=== PATIENT | female | born 1950 | race Caucasian/White ===

== ENCOUNTER 2017-11-04 16:57 | Observation (INO) ==
[2017-11-04] MEDS ORDERED: *HR* HYDROcodone/Acet 5/325 mg TABLET PO PRN (20:45)
[2017-11-04] MEDS ORDERED: Naloxone 0.4 MG/ML INJ IVP PRN (20:45)
[2017-11-04] MEDS ORDERED: Ondansetron 4 MG/2 ML VIAL IVP PRN (20:48)
--- NOTE | 2017-11-04 20:57 | Internal Med History&Physical ---
Date of Encounter: 11/04/17 Time of Encounter: 20:08 Internal Medicine - H&P: HPI Chief complaint: transfer from [place] [facility] for facial abscess Admitted From: Hospital to Hospital Transfer Plans for Post Hospital Care: Home History of present illness: Ms. Sepulveda is a 67 year old female with PMH of uterine ca s/p hysterectomy ( currently in remission-2years), and colon ca s/p colon resection 15 years ago who was transferred from [facility] for management of facial abscess. Pt reports of pulling a hair from her right upper lip region three days ago that appears to have gotten infected. She is noted to have significant swelling of her right upper lip extending to her lower jaw. Reports of severe pain and discomfort. Reports of having history of MRSA exposure. Prior to her transfer, she received Vancomycin and Clindamycin at the [facility]. ENT evaluation was requested by the ER physician prior to her transfer. At this time, pt is resting comfortably in bed, states pain is controlled, and denies any difficulty breathing, swallowing, headache, n/v, fever, or chills. Past Med Surg Social Fam HX - Past Medical History Medical history: cancer Psychiatric history: no psych history - Past Surgical History Surgical History: colectomy, hysterectomy - Social History Smoking Status: Never smoker Smokeless Tobacco Status: No Alcohol use: none Drug use: none Internal Medicine - H&P: Meds No Known Home Drugs 09/23/16 [History] 3 Allergy/AdvReac Type Severity Reaction Status Date / Time Tetanus Vaccines and Toxoid AdvReac Numbness Verified 09/23/16 09:25 [Tetanus Vaccines & Toxoid] All Systems PM: A 10-system review of systems was performed and is negative for pertinent findings except as documented above in the HPI. - Constitutional Constitutional: as per HPI, no chills, no fatigue, no fever(s), no falls, no lethargy, no malaise, no night sweats - Constitutional Vitals: Temp Pulse Resp BP Pulse Ox 97.9 F 80 14 114/54 99 11/04/17 19:57 11/04/17 19:57 11/04/17 19:57 11/04/17 19:57 11/04/17 19:57 General appearance: Present: A&O X 3, no acute distress, obese, answers questions appropriately - Head Head exam: Present: atraumatic, normocephalic - Expanded Head Exam 1 - area of infected hair with erythema and swelling, tender to touch, no tongue swelling - Respiratory Respiratory exam: Present: CTAB. Absent: accessory muscle use, rales, rhonchi, wheezes - Cardiovascular Cardiovascular exam: Present: RRR, +S1, +S2. Absent: diastolic murmur, gallop, rubs, systolic murmur - GI/Abdominal GI/Abdominal exam: Present: normal bowel sounds, soft, no peritoneal signs. Absent: distended, tenderness - Extremities Exam Extremities exam: Present: warm, radial pulses palpable and symmetrical. Absent : calf tenderness, cyanotic, pedal edema - Assessment and plan (1) Cellulitis Current Visit: No Status: Acute Assessment and plan: FACE CT: 1. Soft tissue swelling overlying the right side of the mandible with several loculated fluid collections adjacent to each other in the soft tissues lateral to the right side of the mandible. The largest measures 19 mm in diameter. These could represent infected fluid collections. 2. Otherwise, no acute abnormalities are seen in the face. Please follow up with ENT consultation in am continue broad spectrum IV abx IV fluids anti emetics as needed pain control supportive care Qualifiers: Site of cellulitis: face Qualified Code(s): L03.211 - Cellulitis of face (2) Obesity Current Visit: Yes Status: Chronic Qualifiers: Obesity type: unspecified obesity type Obesity classification: adult class 1 (BMI 30 - 34.9) Serious obesity comorbidity presence: without serious comorbidity Body mass index: BMI 31.0-31.9 Qualified Code(s): E66.9 - Obesity, unspecified; Z68.31 - Body mass index (BMI) 31.0-31.9, adult (3) DVT prophylaxis Current Visit: Yes Status: Acute Assessment and plan: Heparin SQ - Time Spent With Patient Total time spent is greater than 50% in coordination of care (as documented) at patient's floor/unit and/or counseling patient:
[2017-11-04] MEDS: *HR* OxyCODONE Immed Rel 5 MG TABLET PO PRN (21:01)
[2017-11-04] MEDS: 0.9 % Sodium Chloride 1,000 ML IVC SCH (21:02)
[2017-11-04] MEDS: Piperacillin/Tazobactam 3.375 GM in 0.9 % Sodium Chloride Mini Bag 100 ML IVPB SCH (23:42)
[2017-11-05] MEDS: *HR* OxyCODONE Immed Rel 5 MG TABLET PO PRN ×3 (03:48→18:01)
[2017-11-05 05:35] LABS: Basophils # 0.1 K/mcL (0.0-0.2); Basophils % 0.4 %; Eosinophils # 0.1 K/mcL (0.0-0.6); Eosinophils % 0.7 %; Hematocrit 35.8 % (35.3-44.9); Hemoglobin 11.9 g/dL (11.5-15.4); Immature Granulocytes % 0.4 % (0-4); Lymphocytes # 1.6 K/mcL (0.6-4.6); Lymphocytes % 10.1 %; Mean Corpuscular HGB Conc 33.2 g/dL (31.6-35.5); Mean Corpuscular Hemoglobin 31.6 pg (28.0-33.3); Mean Corpuscular Volume 95.2 fL (83.0-100.0); Mean Platelet Volume 10.6 fL (9.4-12.4); Monocytes # 0.9 K/mcL (0.0-1.3); Monocytes % 5.5 %; Neutrophils # 13.3 K/mcL (1.6-8.9); Platelet Count 265 K/mcL (140-400); Red Blood Count 3.76 M/mcL (3.82-4.97); Red Cell Distribution Width 13.4 % (11.5-14.5); Segmented Neutrophils % 82.9 %
[2017-11-05 05:55] LABS: BUN/Creatinine Ratio 9 (6-26); Blood Urea Nitrogen 9 mg/dL (8-23); Calcium 8.7 mg/dL (8.6-10.3); Carbon Dioxide 21 mEq/L (23-29); Chloride 107 mEq/L (98-107); Glucose 97 mg/dL (70-105); Osmolality,Calculated 283 (280-300); Phosphorous 3.5 mg/dL (2.7-4.5); Potassium 3.9 mEq/L (3.5-5.1); Sodium 137 mEq/L (136-145); eGFR For African Americans > 60 (> 60); eGFR For Non-African Americans 55 (> 60)
[2017-11-05] MEDS: Piperacillin/Tazobactam 3.375 GM in 0.9 % Sodium Chloride Mini Bag 100 ML IVPB SCH ×2 (08:03→18:00)
[2017-11-05] MEDS ORDERED: Lidocaine -MPF 1% 5 ML AMPUL INFILT ONE (08:58)
--- NOTE | 2017-11-05 09:10 | ENT - Consult Note ---
Date of Encounter: 11/05/17 Time of Encounter: 09:06 Assessment and Plan (1) Facial abscess Current Visit: Yes Status: Acute The area of the suspected abscess was aspirated at the bedside under local anesthetic. only a small amount of fluid could be aspirated despite probing in the areas identified on the CT. this was sent for culture. This should provide for culture directed therapy. if she worsens or does not improve, formal I&D may be necessary however I would prefer to see if IV abx can control this if possible to avoid an incision on the face. And given her level of pain/ tenderness, it may require general anesthesia. I will continue to follow. History of Present Illness Consult date: 11/05/17 Reason for ENT Consult: other (facial abscess, right side) History of present illness: Mrs Sepulveda is a 67 year old female with a several day history of facial swelling after pulling out a hair on the lateral part of her right upper lip. pain and swelling progressed until she presented yesterday to the ER at [place]. CT was obtained showing likely fluid collection that appears to be localized to the buccal space on the right. she was started on clindamycin and vancomycin before transfer here to the hospitalist service last night. she is currently on vancomycin and zosyn. she is afebrile. WBC 16 this morning (unclear if she may have received steroids prior to transfer?). Past Med Surg Social Fam HX - Past Medical History Medical history: cancer Psychiatric history: no psych history - Past Surgical History Surgical History: colectomy, hysterectomy - Social History Smoking Status: Never smoker Smokeless Tobacco Status: No Alcohol use: none Drug use: none Medications and Allergies No Known Home Drugs 09/23/16 [History] 3 Allergy/AdvReac Type Severity Reaction Status Date / Time Tetanus Vaccines and Toxoid AdvReac Numbness Verified 09/23/16 09:25 [Tetanus Vaccines & Toxoid] ENT - ROS - Constitutional Constitutional ROS: no fever(s) - EENT Nose, mouth and throat: as per HPI ENT Exam Initial Vital Signs Temp Pulse Resp BP Pulse Ox 97.1 F L 79 16 122/74 98 11/04/17 19:05 11/04/17 19:05 11/04/17 19:05 11/04/17 19:05 11/04/17 19:05 - General physical appearance well developed, well nourished, no distress, moderate pain - Eyes PERRL, normal ocular movement - ENT normal nares, normal mucosa, no congestion, atraumatic, normocephalic, CN 2-12 grossly intact, Other (edema and erythema of right face near commissure encompassing the area of the nasolabial fold superiorly extending inferiorly over the mandible. tense to palpation in buccal space over maxillary teeth.). negative: poor senior care - Neck no bruits, trachea midline - Respiratory normal expansion, normal respiratory effort Exam Initial Vital Signs Temp Pulse Resp BP Pulse Ox 97.1 F L 79 16 122/74 98 11/04/17 19:05 11/04/17 19:05 11/04/17 19:05 11/04/17 19:05 11/04/17 19:05 Results - Labs 11/05/17 05:14 11/05/17 05:14 Abnormal lab results WBC 16.1 K/mcL (4.3-11.1) H 11/05/17 05:14 RBC 3.76 M/mcL (3.82-4.97) L 11/05/17 05:14 Neutrophils # 13.3 K/mcL (1.6-8.9) H 11/05/17 05:14 Carbon Dioxide 21 mEq/L (23-29) L 11/05/17 05:14 Est GFR (Non-Af Amer) 55 (> 60) L 11/05/17 05:14 Diabetes panel 11/05/17 Range/Units 05:14 Sodium 137 (136-145) mEq/L Potassium 3.9 (3.5-5.1) mEq/L Chloride 107 (98-107) mEq/L Carbon Dioxide 21 L (23-29) mEq/L BUN 9 (8-23) mg/dL Creatinine 1.00 (0.60-1.20) mg/dL Glucose 97 (70-105) mg/dL Calcium 8.7 (8.6-10.3) mg/dL Calcium panel 11/05/17 Range/Units 05:14 Calcium 8.7 (8.6-10.3) mg/dL Phosphorus 3.5 (2.7-4.5) mg/dL Pituitary panel 11/05/17 Range/Units 05:14 Sodium 137 (136-145) mEq/L Potassium 3.9 (3.5-5.1) mEq/L Chloride 107 (98-107) mEq/L Carbon Dioxide 21 L (23-29) mEq/L BUN 9 (8-23) mg/dL Creatinine 1.00 (0.60-1.20) mg/dL Glucose 97 (70-105) mg/dL Calcium 8.7 (8.6-10.3) mg/dL Adrenal panel 11/05/17 Range/Units 05:14 Sodium 137 (136-145) mEq/L Potassium 3.9 (3.5-5.1) mEq/L Chloride 107 (98-107) mEq/L Carbon Dioxide 21 L (23-29) mEq/L BUN 9 (8-23) mg/dL Creatinine 1.00 (0.60-1.20) mg/dL Glucose 97 (70-105) mg/dL Calcium 8.7 (8.6-10.3) mg/dL All other labs normal. Consult Discharge Plan - Plan Referrals: Jos Ramirez [Partnered Physician] - Regino Tomas MD [Primary Care Provider] -
--- NOTE | 2017-11-05 09:50 | ENT - Procedure Note ---
Date of procedure: 11/05/17 Pre-op diagnosis: facial abscess Post-op diagnosis: same Procedure: aspiration of facial abscess, right nasolabial area extending down to buccal region informed consent was obtained. the area was infiltrated with 1% lidocaine, roughly 1 ml. a syringe and 19 jayla needle was used to probe the area. roughly 2 cc of purulent material was obtained which was applied to a culture swab and sent for culture. she tolerated the procedure well and there were no complications. Anesthesia: local Surgeon: Jos Ramirez Was there an assistant community manager present: No Estimated blood loss (cc): 1 Specimens collected: right facial abscess x2 Condition: stable
--- NOTE | 2017-11-05 14:12 | Internal Med Progress Note ---
Date of Encounter: 11/05/17 Time of Encounter: 14:10 - Assessment and plan (1) Facial abscess Current Visit: Yes Status: Acute Assessment and plan: Facial abscess status post aspiration. Continue current antibiotics while we await culture results. ENT following. If symptoms worsen, she may need I&D. Pain control. Moderate risk for complications. (2) Cellulitis Current Visit: Yes Status: Acute Assessment and plan: Management as above Qualifiers: Site of cellulitis: face Qualified Code(s): L03.211 - Cellulitis of face (3) Obesity Current Visit: Yes Status: Chronic Qualifiers: Obesity type: unspecified obesity type Obesity classification: adult class 1 (BMI 30 - 34.9) Serious obesity comorbidity presence: without serious comorbidity Body mass index: BMI 31.0-31.9 Qualified Code(s): E66.9 - Obesity, unspecified; Z68.31 - Body mass index (BMI) 31.0-31.9, adult (4) DVT prophylaxis Current Visit: Yes Status: Acute Assessment and plan: Will place patient on subcutaneous heparin - Time Spent With Patient Total time spent is greater than 50% in coordination of care (as documented) at patient's floor/unit and/or counseling patient: - Subjective Interval history: Patient seen earlier today. Complains of pain over her right upper lip as she just underwent aspiration. No fever or chills reported overnight. Continues to have swelling over her right maxillary and mandibular region and her right upper lip - Constitutional Vitals: Temp Pulse Resp BP Pulse Ox 98.8 F 77 16 113/70 98 11/05/17 10:45 11/05/17 10:45 11/05/17 10:45 11/05/17 10:45 11/05/17 10:45 General appearance: Present: A&O X 3, no acute distress, obese, answers questions appropriately - ENT Additional comments: Swelling involving the right maxillary and mandibular region and right upper lip. Erythema present over the right upper lip. Tender to palpation. - Neck Neck exam general surgery: Present: supple, trachea midline. Absent: lymphadenopathy - Respiratory Respiratory exam: Present: CTAB. Absent: accessory muscle use, rales, rhonchi, wheezes - Cardiovascular Cardiovascular exam: Present: RRR, +S1, +S2. Absent: diastolic murmur, gallop, rubs, systolic murmur - GI/Abdominal GI/Abdominal exam: Present: normal bowel sounds, soft, no peritoneal signs. Absent: distended, tenderness - Extremities Exam Extremities exam: Present: warm, radial pulses palpable and symmetrical. Absent : calf tenderness, cyanotic, pedal edema - Neurological Exam Neurological exam: Present: alert, CN II-XII intact, oriented X3, no focal deficits. Absent: facial droop, speech deficit - Skin Skin exam: Present: dry, intact Internal Medicine: Result - Labs CBC & Chem 7: 11/05/17 05:14 11/05/17 05:14 Labs: Short CBC 11/05/17 Range/Units 05:14 WBC 16.1 H (4.3-11.1) K/mcL Hgb 11.9 D (11.5-15.4) g/dL Hct 35.8 (35.3-44.9) % Plt Count 265 (140-400) K/mcL Neutrophils # 13.3 H (1.6-8.9) K/mcL BMP 11/05/17 05:14 Sodium 137 Potassium 3.9 Chloride 107 Carbon Dioxide 21 L BUN 9 Creatinine 1.00 Glucose 97 Calcium 8.7 Consult Discharge Plan - Plan Referrals: Jos Ramirez [Partnered Physician] - Regino Tomas MD [Primary Care Provider] -
[2017-11-05] MEDS: 0.9 % Sodium Chloride 1,000 ML IVC SCH (15:42)
[2017-11-05] MEDS: *HR* Heparin 5,000 UNIT/ML VIAL SQ SCH (18:01)
[2017-11-06] MEDS: Piperacillin/Tazobactam 3.375 GM in 0.9 % Sodium Chloride Mini Bag 100 ML IVPB SCH ×3 (02:43→18:23)
[2017-11-06] MEDS: *HR* OxyCODONE Immed Rel 5 MG TABLET PO PRN (02:48)
[2017-11-06 03:37] LABS: Basophils # 0.1 K/mcL (0.0-0.2); Basophils % 0.5 %; Eosinophils # 0.1 K/mcL (0.0-0.6); Eosinophils % 0.9 %; Hematocrit 34.2 % (35.3-44.9); Hemoglobin 11.1 g/dL (11.5-15.4); Immature Granulocytes % 0.4 % (0-4); Lymphocytes # 1.6 K/mcL (0.6-4.6); Lymphocytes % 12.6 %; Mean Corpuscular HGB Conc 32.5 g/dL (31.6-35.5); Mean Corpuscular Volume 95.5 fL (83.0-100.0); Mean Platelet Volume 10.5 fL (9.4-12.4); Monocytes # 0.8 K/mcL (0.0-1.3); Monocytes % 5.9 %; Neutrophils # 10.4 K/mcL (1.6-8.9); Platelet Count 262 K/mcL (140-400); Red Blood Count 3.58 M/mcL (3.82-4.97); Red Cell Distribution Width 13.2 % (11.5-14.5); Segmented Neutrophils % 79.7 %
[2017-11-06 04:01] LABS: BUN/Creatinine Ratio 8 (6-26); Blood Urea Nitrogen 8 mg/dL (8-23); Calcium 8.3 mg/dL (8.6-10.3); Carbon Dioxide 24 mEq/L (23-29); Chloride 107 mEq/L (98-107); Glucose 118 mg/dL (70-105); Osmolality,Calculated 281 (280-300); Potassium 3.9 mEq/L (3.5-5.1); Sodium 136 mEq/L (136-145); eGFR For African Americans > 60 (> 60); eGFR For Non-African Americans 55 (> 60)
[2017-11-06] MEDS: *HR* Heparin 5,000 UNIT/ML VIAL SQ SCH ×2 (05:22→16:46)
--- NOTE | 2017-11-06 07:34 | ENT - Progress Note ---
Date of Encounter: 11/06/17 Time of Encounter: 07:31 - Assessment and Plan (1) Facial abscess Current Visit: Yes Status: Acute The area of the suspected abscess was aspirated at the bedside under local anesthetic yesterday. culture still pending. this likely did not evacuate the entire abscess because only a couple of cc's were obtained. she remains afebrile today, WBC trening down, however she has not changed clinically and desires anything to be done that would speed her recovery. I offered I&D. she does not want to try this procedure without general anesthesia due to her pain level. She has been NPO since midnight. Will add her on the OR for this morning. consent obtained. Subjective Narrative: Mrs Sepulveda is a 67 year old female with a several day history of facial swelling after pulling out a hair on the lateral part of her right upper lip. pain and swelling progressed until she presented 2 days ago to the ER at [place]. CT was obtained showing likely fluid collection that appears to be localized to the buccal space on the right. she was started on clindamycin and vancomycin before transfer here to the hospitalist service. she has been on Zosyn and Vancomycin since her arrival here two nights ago. she remains afebrile. WBC 13 (down from 16) this morning. there has been no change in her condition clinically and she wants anything done that can get her better faster. Objective Initial Vital Signs Temp Pulse Resp BP Pulse Ox 97.1 F L 79 16 122/74 98 11/04/17 19:05 11/04/17 19:05 11/04/17 19:05 11/04/17 19:05 11/04/17 19:05 - General physical appearance well developed, well nourished, no distress - Eyes PERRL, normal ocular movement - ENT normal nares, normal mucosa, no congestion, Other (stable swelling of right nasolabial fold and buccal space over upper dentition.) - Neck no masses, no bruits, trachea midline - Labs 11/06/17 03:08 11/06/17 03:08 Diabetes panel 11/06/17 Range/Units 03:08 Sodium 136 (136-145) mEq/L Potassium 3.9 (3.5-5.1) mEq/L Chloride 107 (98-107) mEq/L Carbon Dioxide 24 (23-29) mEq/L BUN 8 (8-23) mg/dL Creatinine 1.00 (0.60-1.20) mg/dL Glucose 118 H (70-105) mg/dL Calcium 8.3 L (8.6-10.3) mg/dL Calcium panel 11/06/17 Range/Units 03:08 Calcium 8.3 L (8.6-10.3) mg/dL Pituitary panel 11/06/17 Range/Units 03:08 Sodium 136 (136-145) mEq/L Potassium 3.9 (3.5-5.1) mEq/L Chloride 107 (98-107) mEq/L Carbon Dioxide 24 (23-29) mEq/L BUN 8 (8-23) mg/dL Creatinine 1.00 (0.60-1.20) mg/dL Glucose 118 H (70-105) mg/dL Calcium 8.3 L (8.6-10.3) mg/dL Adrenal panel 11/06/17 Range/Units 03:08 Sodium 136 (136-145) mEq/L Potassium 3.9 (3.5-5.1) mEq/L Chloride 107 (98-107) mEq/L Carbon Dioxide 24 (23-29) mEq/L BUN 8 (8-23) mg/dL Creatinine 1.00 (0.60-1.20) mg/dL Glucose 118 H (70-105) mg/dL Calcium 8.3 L (8.6-10.3) mg/dL Consult Discharge Plan - Plan Referrals: Jos Ramirez [Partnered Physician] - Regino Tomas MD [Primary Care Provider] -
--- NOTE | 2017-11-06 08:07 | Anesthesia Evaluation PreOp ---
Date of Encounter: 11/06/17 Time of Encounter: 08:00 - Past History Planned Operation: Incision and Drainage Facial Abscess Cardiac History: Denies any Significant Hx Pulmonary History: Denies Any Significant HX GEODETIC SURVEY DIRECTOR History: Denies Any Significant HX Other Medical History: Denies Any Significant HX, Other (Hx Unterine and Colon Cancer) Anesthesia History: No Prior Anesthetic Complications, Past Anesthesia (Colon Resection, Hysterectomy) : No (AHMET) Alcohol Use: none Drug use: none Medications and Allergies No Known Home Drugs 09/23/16 [History] 3 Allergy/AdvReac Type Severity Reaction Status Date / Time Tetanus Vaccines and Toxoid AdvReac Numbness Verified 11/05/17 12:08 [Tetanus Vaccines & Toxoid] - Meds/Allergy Pre-op Review Medications Reviewed: Yes Allergies Reviewed: Yes Beta Blockers on Current Med List: No Anesthesia Results - Labs 11/06/17 03:08 11/06/17 03:08 Laboratory Tests 11/06/17 11/06/17 03:08 03:08 WBC 13.0 H Hgb 11.1 L Hct 34.2 L Plt Count 262 Sodium 136 Potassium 3.9 BUN 8 Creatinine 1.00 Anesthesia Exam Vital Signs/O2 Sat/Glucose, Most Current Temp Pulse Resp BP Pulse Ox 11/06/17 08:02 98.5 F 74 14 114/63 96 11/06/17 07:45 93 11/06/17 05:26 98.3 F 75 16 108/66 93 Height: 5'2 Weight: 175 lbs NPO (# of Hours): MN Pain Scale: 3 - HEENT Pupil (Motor): Pupils equal, EOMI Mallampati: III Teeth: Normal Oral Opening: Less than or equal to 3 (Swollen Rt Facial side) - GEODETIC SURVEY DIRECTOR LOC: Oriented GEODETIC SURVEY DIRECTOR Motor: Normal RUE, Normal LUE, Normal RLE, Normal LLE, Normal Face GEODETIC SURVEY DIRECTOR Sensory: Normal: RUE, LUE, RLE, LLE, Face - Cardiac Rhythm: Regular Murmur: None JVD: No Carotid Bruit: No - Pulmonary Breath Sounds: bilateral Clear Respiratory Effort: Symmetrical Anesthesia Assess/Plan ASA Score: 2 Modified Holmen Scale for Level of Consciousness: Cooperative, oriented, and tranquil Anesthetic Plan: General Monitoring Plan: Standard Monitors Recovery Plan: PACU (Discussed GA, agrees to proceed)
[2017-11-06] MEDS ORDERED: *HR* Succinylcholine 200 MG/10 ML VIAL IVP ONE (08:09)
[2017-11-06] MEDS ORDERED: Dexamethasone 4 MG/ML VIAL ONE ×2 (08:09→09:25)
[2017-11-06] MEDS ORDERED: Lidocaine -MPF 4% 5 ML AMPUL ONE (08:09)
[2017-11-06] MEDS ORDERED: Ondansetron 4 MG/2 ML VIAL ONE (08:09)
[2017-11-06] MEDS ORDERED: Lidocaine -MPF 2% 2 ML VIAL ONE ×2 (08:09)
[2017-11-06] MEDS ORDERED: *HR* Rocuronium Bromide 50 MG/5 ML VIAL ONE (08:09)
[2017-11-06] MEDS ORDERED: *HR* Propofol 200 MG/20 ML VIAL IVP ONE (08:11)
[2017-11-06] MEDS ORDERED: *HR* FentaNYL (PF) 100 MCG/2 ML VIAL ONE (08:11)
[2017-11-06] MEDS ORDERED: *HR* Midazolam HCl 2 MG/2 ML VIAL ONE (08:11)
[2017-11-06] MEDS ORDERED: Lidocaine/EPI 1:100k 1% 20 ML VIAL ONE (08:43)
[2017-11-06] MEDS ORDERED: Acetaminophen IV 1,000 MG/100 ML INFUS..BTL ONE (08:56)
[2017-11-06] MEDS ORDERED: Famotidine 20 MG/2 ML VIAL ONE (08:56)
[2017-11-06] MEDS ORDERED: EPHEDrine 50 MG/ML VIAL ONE (09:14)
[2017-11-06] MEDS ORDERED: Ketorolac 30 MG/ML VIAL ONE (09:22)
[2017-11-06] MEDS ORDERED: *HR* OxyCODONE Immed Rel 5 MG TABLET PO PRN (09:27)
[2017-11-06] MEDS ORDERED: MORPHINE SUL Oral CONC 10 MG/0.5 ML ORAL.SYG SL PRN (09:27)
[2017-11-06] MEDS ORDERED: *HR* Promethazine 25 MG/ML VIAL IVP PRN (09:27)
--- NOTE | 2017-11-06 09:39 | Operative Note ---
Date of procedure: 11/06/17 Pre-op diagnosis: right facial abscess Post-op diagnosis: same Procedure: intraoral incision and driange of right buccal space abscess Implants: mu drain in right buccal mucosa, sutured in place Complications: none Anesthesia: GETA Local Anesthetics: 1% Lidocaine HCL with Epinephrine 1:200,000 SubQ (cc) Surgeon: Jos Ramirez Was there an customer service assistant present: No Estimated blood loss (cc): 2 IV fluids (cc): 300 Specimen: wound culture x2 Condition: stable Disposition: PACU Procedure in Detail: Informed consent was verified in the preoperative holding area. The patient was taken to the main operating room and placed in a supine position the operating table. Gen. anesthesia was then initiated and she was endotracheally intubated without difficulty. A timeout was performed verifying the patient's name and the planned procedure. The patient was then prepped and draped for oral surgery. The buccal mucosa was infiltrated with 1% lidocaine with 1 100, 000 epinephrine in an area of fluctuance in preparation for incision and drainage. A 15 blade was used to incise the buccal mucosa overlying this fluctuant area. Copious purulent material was expressed and cultured. The cavity was then probed with a hemostat and additional loculations were opened. The abscess cavity extended posteriorly from the oral commissure roughly 4 cm. The cavity was irrigated with normal saline. Additional local anesthetic was injected in the surrounding areas for postoperative pain control. A Um drain was then placed in the incision into the abscess cavity and sutured in place with a 2-0 Prolene anteriorly on the buccal mucosa. At this point the goals of procedure had been met the patient was allowed to awaken from general anesthesia and was extubated without difficulty. She was taken to the recovery room in good condition. There were no complications.
--- NOTE | 2017-11-06 10:18 | Anesthesia Evaluation Post Op ---
Date of Encounter: 11/06/17 Time of Encounter: 10:20 - Vital Signs Vital Signs: Vital Signs/O2 Sat/Glucose, Most Current Temp Pulse Resp BP Pulse Ox 11/06/17 10:12 98.2 F 92 14 117/60 94 11/06/17 10:02 88 14 115/60 96 11/06/17 09:52 96 16 106/55 97 11/06/17 09:42 97.2 F L 98 16 106/55 98 11/06/17 08:02 98.5 F 74 14 114/63 96 11/06/17 07:45 93 - Lungs Lungs: Clear Ascult./Percussion - Airway Airway: Non-obstructed - Cardiovascular Regular Rate - Mental Status Mental Status: Alert & Oriented, Answers Appropriately - Pain Pain Scale: 1 - Nausea Vomiting Nausea Vomiting: Not Present - Hydration Hydration: Ice chips - Discharge PostOp Status: Transfer Patient to floor
--- NOTE | 2017-11-06 14:38 | Internal Med Progress Note ---
Date of Encounter: 11/06/17 Time of Encounter: 11:00 - Assessment and plan (1) Facial abscess Current Visit: Yes Status: Acute Assessment and plan: Wound culture growing gram-positive cocci. Possibly MRSA. Continue vancomycin. No other organism grows, we will stop Zosyn tomorrow. Moderate risk for complications (2) Cellulitis Current Visit: Yes Status: Acute Assessment and plan: Management as above Qualifiers: Site of cellulitis: face Qualified Code(s): L03.211 - Cellulitis of face (3) Obesity Current Visit: Yes Status: Chronic Qualifiers: Obesity type: unspecified obesity type Obesity classification: adult class 1 (BMI 30 - 34.9) Serious obesity comorbidity presence: without serious comorbidity Body mass index: BMI 31.0-31.9 Qualified Code(s): E66.9 - Obesity, unspecified; Z68.31 - Body mass index (BMI) 31.0-31.9, adult (4) DVT prophylaxis Current Visit: Yes Status: Acute Assessment and plan: With subcutaneous heparin - Time Spent With Patient Total time spent is greater than 50% in coordination of care (as documented) at patient's floor/unit and/or counseling patient: - Subjective Interval history: Patient underwent incision and drainage of buccal abscess this morning. Doing well post procedure. Complains of pain but is much improved since the surgery. No fever or chills reported overnight. No nausea or vomiting. - Constitutional Vitals: Temp Pulse Resp BP Pulse Ox 98.2 F 92 14 117/60 94 11/06/17 10:12 11/06/17 10:12 11/06/17 10:12 11/06/17 10:12 11/06/17 10:12 General appearance: Present: A&O X 3, no acute distress, obese, answers questions appropriately - ENT Additional comments: Swelling improved on the right side of the face. Less tender to palpation. Less indurated. Right upper lip swelling also improving. - Neck Neck exam general surgery: Present: supple, trachea midline. Absent: lymphadenopathy - Respiratory Respiratory exam: Present: CTAB. Absent: accessory muscle use, rales, rhonchi, wheezes - Cardiovascular Cardiovascular exam: Present: RRR, +S1, +S2. Absent: diastolic murmur, gallop, rubs, systolic murmur - GI/Abdominal GI/Abdominal exam: Present: normal bowel sounds, soft, no peritoneal signs. Absent: distended, tenderness - Neurological Exam Neurological exam: Present: alert, oriented X3, no focal deficits. Absent: facial droop, speech deficit - Skin Skin exam: Present: dry, intact Internal Medicine: Result - Labs CBC & Chem 7: 11/06/17 03:08 11/06/17 03:08 Labs: Short CBC 11/06/17 Range/Units 03:08 WBC 13.0 H (4.3-11.1) K/mcL Hgb 11.1 L (11.5-15.4) g/dL Hct 34.2 L (35.3-44.9) % Plt Count 262 (140-400) K/mcL Neutrophils # 10.4 H (1.6-8.9) K/mcL BMP 11/06/17 03:08 Sodium 136 Potassium 3.9 Chloride 107 Carbon Dioxide 24 BUN 8 Creatinine 1.00 Glucose 118 H Calcium 8.3 L Consult Discharge Plan - Plan Referrals: Jos Ramirez [Partnered Physician] - Regino Tomas MD [Primary Care Provider] -
[2017-11-07] MEDS: Piperacillin/Tazobactam 3.375 GM in 0.9 % Sodium Chloride Mini Bag 100 ML IVPB SCH ×2 (03:09→10:05)
[2017-11-07] MEDS: *HR* Heparin 5,000 UNIT/ML VIAL SQ SCH (05:37)
--- NOTE | 2017-11-07 07:26 | ENT - Progress Note ---
Date of Encounter: 11/07/17 Time of Encounter: 07:23 - Assessment and Plan (1) Facial abscess Current Visit: Yes Status: Acute POD 1 s/p intraoral I&D of right nasolabial/buccal space abscess. mu drain removed this morning. clinically improving. gram stain indicates possible staph, vancomycin will be continued until sensitivities are available. I am rotating off of the service this morning. I am transferring her care to Dr. Daniels, who will continue to follow her while she is inpatient. Subjective Narrative: Mrs Sepulveda is a 67 year old female with a several day history of facial swelling after pulling out a hair on the lateral part of her right upper lip. pain and swelling progressed until she presented 3 days ago to the ER at [place]. CT was obtained showing likely fluid collection that appears to be localized to the buccal space on the right. she was started on clindamycin and vancomycin before transfer here to the hospitalist service. she has been on Zosyn and Vancomycin since her arrival here 3 nights ago. The abscess was aspirated on with minimal return of fluid, but cultures were sent. She did not clinically improve, so the following morning on 11/06/17 a formal I&D was performed (today in POD 1) and additional cultures were taken. she was in significant pain, therefore the procedure was performed in the OR under [facility]. she has improved dramatically since the I&D but is still in a bit of pain. she remains afebrile. WBC down to 13 yesterday but no labs drawn this morning yet. Objective Initial Vital Signs Temp Pulse Resp BP Pulse Ox 97.1 F L 79 16 122/74 98 11/04/17 19:05 11/04/17 19:05 11/04/17 19:05 11/04/17 19:05 11/04/17 19:05 - General physical appearance well developed, well nourished, no distress, moderate pain - Eyes PERRL, normal ocular movement - ENT normal nares, normal mucosa, Other (right nasolabial area much less edematous and less erythematous, still indurated, no fluctuance. small mu drain intraorally at site of I&D was removed this morning.) - Neck no masses, no bruits, trachea midline - Respiratory normal expansion, normal respiratory effort - Labs 11/06/17 03:08 11/06/17 03:08 - VTE Documentation of Mechanical Device: Venous foot pump, device Consult Discharge Plan - Plan Referrals: Jos Ramirez [Partnered Physician] - Regino Tomas MD [Primary Care Provider] -
[2017-11-07 09:11] LABS: Basophils # 0.1 K/mcL (0.0-0.2); Basophils % 0.6 %; Eosinophils % 0.4 %; Hemoglobin 10.6 g/dL (11.5-15.4); Immature Granulocytes % 0.4 % (0-4); Lymphocytes # 1.6 K/mcL (0.6-4.6); Lymphocytes % 15.1 %; Mean Corpuscular HGB Conc 33.1 g/dL (31.6-35.5); Mean Corpuscular Hemoglobin 31.4 pg (28.0-33.3); Mean Corpuscular Volume 94.7 fL (83.0-100.0); Mean Platelet Volume 10.8 fL (9.4-12.4); Monocytes # 0.7 K/mcL (0.0-1.3); Monocytes % 6.3 %; Neutrophils # 8.2 K/mcL (1.6-8.9); Platelet Count 266 K/mcL (140-400); Red Blood Count 3.38 M/mcL (3.82-4.97); Segmented Neutrophils % 77.2 %
[2017-11-07 11:03] VITALS: BP 112/70
--- NOTE | 2017-11-07 11:03 | Discharge Summary ---
- NOTES TO OUTPATIENT PROVIDER Notes to Outpatient Provider: Patient admitted with facial cellulitis and abscess. Evaluated by ENT. She underwent aspiration and then incision and drainage of buccal abscess. Wound culture positive for MRSA. Will be discharged on clindamycin today. Outpatient follow-up with ENT as needed. Orders not resulted at time of discharge: Pending orders 11/06/17 10:25 Culture,Anaerobic [RM] Routine Culture,Wound [RM] Routine 11/07/17 13:00 Vancomycin,Trough Timed Date of Encounter: 11/07/17 Time of Encounter: 11:00 - Discharge Diagnosis (1) Facial abscess Priority: Primary Status: Acute (2) Cellulitis Priority: Secondary Status: Acute Qualifiers: Site of cellulitis: face Qualified Code(s): L03.211 - Cellulitis of face (3) Obesity Priority: Secondary Status: Chronic Qualifiers: Obesity type: unspecified obesity type Obesity classification: adult class 1 (BMI 30 - 34.9) Serious obesity comorbidity presence: without serious comorbidity Body mass index: BMI 31.0-31.9 Qualified Code(s): E66.9 - Obesity, unspecified; Z68.31 - Body mass index (BMI) 31.0-31.9, adult (4) DVT prophylaxis Priority: Secondary Status: Acute Hospital course: Ms. Sepulveda is a 67 year old female Patient with history of uterine cancer status post hysterectomy, colon cancer status post colon resection who was hospitalized here with facial cellulitis and abscess. She was started on IV antibiotics and then evaluated by ENT. She underwent aspiration of facial lesion and then incision and drainage of buccal abscess. A Stopover drain was placed and this was removed today. Her symptoms have since improved. Wound culture is positive for MRSA. It is sensitive to clindamycin. She will be discharged on clindamycin today. Outpatient follow-up with ENT as needed. Discharge discussed with: patient, [employer] consultant - Time Spent with Patient Total time spent providing and/or coordinating discharge services: Less than 30 minutes (25 min) - Discharge Medications Prescriptions: HYDROcodone/Acet 5/325 mg [[place] 5-325 mg] 1 tab PO Q6HR PRN 5 Days #14 tablet PRN Reason: Moderate Pain Clindamycin [Cleocin] 450 mg PO QID 7 Days capsule Lactobacillus Acidophilus [Acidophilus] 1 each PO BID #20 capsule Home Medications: Clindamycin [Cleocin] 450 mg PO QID 7 Days capsule 11/07/17 [Rx] HYDROcodone/Acet 5/325 mg [[place] 5-325 mg] 1 tab PO Q6HR PRN 5 Days #14 tablet 11/07/17 [Rx] Lactobacillus Acidophilus [Acidophilus] 1 each PO BID #20 capsule 11/07/17 [Rx] Allergies/Adverse Reactions: 3 Allergy/AdvReac Type Severity Reaction Status Date / Time Tetanus Vaccines and Toxoid AdvReac Numbness Verified 11/05/17 12:08 [Tetanus Vaccines & Toxoid] Date of admission: 11/04/17 18:19 Primary care physician: Regino Tomas MD Consults: 11/04/17 20:46 Consult to Physician [CONS] Routine Consulting Provider: Jos Ramirez Reason for Consult: facial abscess Call Completed: Yes Discharging clinician: Josh Blair Anticipated date of discharge: 11/07/17 - Constitutional Vitals: Temp Pulse Resp BP Pulse Ox 97.6 F 65 16 127/68 96 11/07/17 07:29 11/07/17 07:29 11/07/17 07:29 11/07/17 07:29 11/07/17 07:29 General appearance: Present: A&O X 3, no acute distress, obese, answers questions appropriately - ENT Additional comments: Erythema and swelling over the right mandibular region and right upper lip improving. Nontender to palpation. - Respiratory Respiratory exam: Present: CTAB. Absent: accessory muscle use, rales, rhonchi, wheezes - Cardiovascular Cardiovascular exam: Present: RRR, +S1, +S2. Absent: diastolic murmur, gallop, rubs, systolic murmur - GI/Abdominal GI/Abdominal exam: Present: normal bowel sounds, soft, no peritoneal signs. Absent: distended, tenderness - Extremities Exam Extremities exam: Present: warm, radial pulses palpable and symmetrical. Absent : calf tenderness, cyanotic, pedal edema - Patient Status Disposition: Home, Self-Care Condition: Good Functional capacity at discharge: independent ambulation Overall status at discharge: patient is progressing back to baseline - Discharge Instructions Instructions: Cellulitis (DC) Follow Up With: Anca Louis CNP [Advanced Practice Nurse] - 11/11/17 2:30 pm Jos Ramirez [Partnered Physician] - (In 1-2 weeks as needed) - Diet and Activity Activity: increase activity as tolerated Diet: low fat, low cholesterol, low salt diet - VTE Documentation of Mechanical Device: Intermittent pneumatic compression device
[2017-11-07] MEDS ORDERED: Aminoglycoside Consult 1 EACH MC ONE (13:28)
== END 2017-11-07 13:29 | disposition home or self-care (01) ==
LOC: 3ANU → SUATTDRO 18:19
PROVIDERS: ADMIT General Practice; ATTEND Internal Medicine